=== PATIENT | male | born 1995 | race Caucasian/White ===

== ENCOUNTER 2020-01-28 23:09 | Emergency (ER) | payer OTHER ==
[2020-01-28 23:37] VITALS: RESP 17
--- NOTE | 2020-01-28 23:37 | ED ---
Psych HPI <Syl Matson - Last Filed: 01/29/20 04:07> <Lynn Quezada - Last Filed: 01/29/20 20:23> - General Stated Complaint: mental health Time Seen by Provider: 01/28/20 23:14 - History of Present Illness Initial Comments: 25-year-old male patient presents to the emergency department today for psychiatric evaluation. Patient was brought in by the police after he made a concerning post on Facebook reporting that he was depressed and wanted to . His mother saw the post and called the police. Patient states he has not attempted to harm himself at all. States that he has been feeling suicidal for the last few months but depressed for much longer. He has no specific plan to take his life, states that he might try to drink himself to . States that he has a lot going on in his life and he feels very lonely and depressed. He previously took depression medication but didn't like it so he stopped it. He does admit to drinking alcohol today. Denies any hallucinations. Does report difficulty with sleeping. He does currently have a job and is able to pay his bills. Denies any current physical symptoms or concerns. Patient denies any recent rash, fever, chills, cough, shortness of breath, chest pain, abdominal pain, nausea, vomiting, diarrhea, constipation, back pain, numbness, tingling, dizziness, weakness, hematuria, dysuria, urinary urgency, urinary frequency, headache, visual changes, or any other complaints. (Lynn Quezada) - Related Data Home Medications Medication Instructions Recorded Confirmed No Known Home Medications 01/28/20 01/28/20 Allergies Allergy/AdvReac Type Severity Reaction Status Date / Time No Known Allergies Allergy Verified 01/28/20 23:38 Review of Systems ROS Other: All systems not noted in ROS Statement are negative. <Syl Matson - Last Filed: 01/29/20 04:07> ROS Other: All systems not noted in ROS Statement are negative. <Lynn Quezada - Last Filed: 01/29/20 20:23> ROS Statement: Those systems with pertinent positive or pertinent negative responses have been documented in the HPI. General Exam General appearance: alert, in no apparent distress, other (This is a well- developed, well-nourished adult male patient in no acute distress. ) Respiratory exam: Present: normal lung sounds bilaterally. Absent: respiratory distress, wheezes, rales, rhonchi, stridor Cardiovascular Exam: Present: regular rate, normal rhythm, normal heart sounds. Absent: systolic murmur, diastolic murmur, rubs, gallop, clicks GI/Abdominal exam: Present: soft, normal bowel sounds. Absent: distended, tenderness, guarding, rebound, rigid Neurological exam: Present: alert, oriented X3, CN II-XII intact Psychiatric exam: Present: depressed, suicidal ideation. Absent: homicidal ideation Skin exam: Present: warm, dry, intact, normal color. Absent: rash <Lynn Quezada M - Last Filed: 01/29/20 20:23> Course Vital Signs 01/28/20 01/29/20 23:25 04:46 Temperature 98.5 F 98.6 F Pulse Rate 84 75 Respiratory 17 17 Rate Blood Pressure 114/67 129/78 O2 Sat by Pulse 96 97 Oximetry Medical Decision Making - Lab Data Lab Results 01/28/20 Range/Units 23:44 Urine Opiates Screen Not Detected (NotDetected) Ur Oxycodone Screen Not Detected (NotDetected) Urine Methadone Screen Not Detected (NotDetected) Ur Propoxyphene Screen Not Detected (NotDetected) Ur Barbiturates Screen Not Detected (NotDetected) U Tricyclic Antidepress Not Detected (NotDetected) Ur Phencyclidine Scrn Not Detected (NotDetected) Ur Amphetamines Screen Not Detected (NotDetected) U Methamphetamines Scrn Not Detected (NotDetected) U Benzodiazepines Scrn Not Detected (NotDetected) Urine Cocaine Screen Not Detected (NotDetected) U Marijuana (THC) Screen Detected H (NotDetected) Disposition Is patient prescribed a controlled substance at d/c from ED?: No <Syl Matson - Last Filed: 01/29/20 04:07> <Lynn Quezada M - Last Filed: 01/29/20 20:23> Clinical Impression: Adjustment reaction of adult life, Alcohol intoxication Disposition: HOME SELF-CARE Condition: Stable Additional Instructions: As discussed follow up out patient, seek alcohol abuse counseling from resources given Call 911 or return to ER if you have any thoughts of harming yourself or others Referrals: Jesse Elder MD [Primary Care Provider] - 1-2 days
[2020-01-29 00:08] LABS: Amphetamine Screen,Urine Not Detected (NotDetected); Barbiturate Screen,Urine Not Detected (NotDetected); Benzodiazepines Screen,Urine Not Detected (NotDetected); Cocaine Screen,Urine Not Detected (NotDetected); Methadone Screen, Urine Not Detected (NotDetected); Opiate Screen,Urine Not Detected (NotDetected); Oxycodone Screen, Urine Not Detected (NotDetected); Phencyclidine Screen,Urine Not Detected (NotDetected); Tricyclic Antidepressant,Urine Not Detected (NotDetected); Urn Cannabinoid Scrn Detected (NotDetected)
[2020-01-29 04:51] VITALS: BP 129/78; PULSE 75; TEMP 98.6
== END 2020-01-29 04:46 | disposition home or self-care (01) ==
LOC: EC 23:09
DX: F43.20 Adjustment disorder, unspecified (principal); F10.129 Alcohol abuse with intoxication, unspecified; R45.851 Suicidal ideations; F32.9 Major depressive disorder, single episode, unspecified; Y90.9 Presence of alcohol in blood, level not specified
CPT/HCPCS: 80306; 82075; 99285